=== PATIENT | female | born 1930 | race Hispanic/Latino ===

== ENCOUNTER 2016-10-21 08:52 | Day surgery (SDC) | payer MEDICARE ==
[2016-10-21] MEDS ORDERED: NACL 0.9% 500 ML 500 ML ONE (09:24)
[2016-10-21] MEDS ORDERED: DIPRIVAN 10 MG/ML IV ONE ×2 (09:29)
[2016-10-21] MEDS ORDERED: XYLOCAINE MPF 2% ONE (09:29)
[2016-10-21 09:40] LABS: Hematocrit 41.5 % (30.3-42.9); Hemoglobin 13.8 gm/dl (10.1-14.3); Mean Corpuscular HGB Conc 33 % (30-34); Mean Corpuscular Hemoglobin 31 pg (28-32); Mean Corpuscular Volume 93 fl (79-97); Platelet Count 235 K/mm3 (140-440); Red Blood Count 4.49 M/mm3 (3.65-5.03); Red Cell Distribution Width 14.4 % (13.2-15.2); White Blood Count 8.5 K/mm3 (4.5-11.0)
--- NOTE | 2016-10-21 09:40 | Anesthesia Consultation ---
Anesthesia Consult and Med Hx Date of service: 10/21/16 - Airway Anesthetic Teeth Evaluation: Good, Partials (bottom) ROM Head & Neck: Adequate Mallampati Class: Class II Intubation Access Assessment: Probably Good - Pre-Operative Health Status ASA Pre-Surgery Classification: ASA3 Proposed Anesthetic Plan: MAC - Cardiovascular System Hx Hypertension: Yes Hx Coronary Artery Disease: No (high cholestrol) Hx Cardia Arrhythmia: Yes (atrial fibrilation) - Central Nervous System Hx Seizures: No Hx Back Pain: No (gout) Hx Psychiatric Problems: Yes (hallucinations) - Endocrine Hx Insulin Dependent Diabetes: Yes
--- NOTE | 2016-10-21 09:41 | Anesthesia Day of Surgery ---
Anesthesia Day of Surgery - Day of Surgery Patient Examined: Yes Patient H&P Reviewed: Yes Patient is NPO: Yes Beta Blockers: Yes (took it last AM, to take after procedure)
[2016-10-21 09:51] LABS: INR 0.93 (0.87-1.13); Partial Thromboplastin Time 26.4 Sec. (24.2-36.6)
[2016-10-21 09:54] LABS: BUN/Creatinine Ratio 14.61; Calcium 9.1 mg/dL (8.4-10.2); Chloride 99.6 mmol/L (98-107); Potassium 4.1 mmol/L (3.6-5.0)
[2016-10-21] MEDS ORDERED: NACL 0.9% 500 ML 500 ML IV SCH (10:00)
[2016-10-21] MEDS ORDERED: HURRICAINE ONE 20% TOPICAL SPRAY MM NR (10:00)
--- NOTE | 2016-10-21 11:33 | Post Anesthesia Evaluation ---
- Post Anesthesia Evaluation Patient Participated: Yes Airway Patent: Yes Stable Respiratory Function: Yes Temp > 96.8F: Yes Pain Manageable: Yes Adequeate Hydration: Yes Anesthesia Complications: No Block Receding Appropriately: Not Applicable
--- NOTE | 2016-10-21 11:34 | Short Stay Summary ---
Short Stay Documentation Date of service: 10/21/16 - History H&P: obtained from office - Allergies and Medications Current Medications: Allergies No Known Allergies Allergy (Verified 01/08/14 22:47) Home Medications Medication Instructions Recorded Confirmed Last Taken Type B12/Levomefolate Calcium/B-6 1 each PO DAILY 01/08/14 01/08/14 10/20/16 History [Folbic Rf Tablet] 1 tab Metoprolol [Lopressor TAB] 25 mg PO BID 01/08/14 10/21/16 10/20/16 History Pioglitazone [Actos] 30 mg PO QDAY 01/08/14 10/21/16 10/20/16 History 30mg amLODIPine [Norvasc] 10 mg PO DAILY 01/08/14 10/21/16 10/20/16 History 10mg glipiZIDE [glipiZIDE XL] 10 mg PO DAILY 01/08/14 10/21/16 10/20/16 History 10mg Digoxin [Lanoxin] 0.125 mg PO DAILY@1700 #30 tablet 01/11/14 10/21/16 10/20/16 Rx 125mcg Allopurinol [Zyloprim] 100 mg PO QDAY #30 tablet 01/14/14 10/21/16 10/20/16 Rx 100mg Clopidogrel Bisulfate [Plavix] 75 mg PO DAILY 10/21/16 10/21/16 10/20/16 History 75mg Haloperidol [Haldol] 0.5 mg PO DAILY 10/21/16 10/21/16 10/20/16 History 0.5mg Insulin NPH, Human [NovoLIN N] 20 units SQ DAILY 10/21/16 10/21/16 10/20/16 History 20 units Pravastatin Sodium [Pravastatin 40 mg PO HS 10/21/16 10/21/16 10/20/16 History Sodium] lamoTRIgine [lamoTRIgine ER] 25 mg PO QAM 10/21/16 10/21/16 10/20/16 History 25mg Active Medications Benzocaine (Hurricaine One 20% Topical [place]) 3 spray MM PREOP NR Stop: 10/21/16 23:59 Last Admin: 10/21/16 10:50 Dose: 3 spray Sodium Chloride (Nacl 0.9% 500 Ml) 500 mls @ 50 mls/hr IV DIRECT ANDRES Stop: 10/21/16 23:59 Last Admin: 10/21/16 09:33 Dose: 50 mls/hr - Brief post op/procedure progress note Date of procedure: 10/21/16 Pre-op diagnosis: tia Post-op diagnosis: same Procedure: see report Anesthesia: local Estimated blood loss: none Pathology: none - Disposition Condition at discharge: Good Disposition: DISCHARGED TO HOME OR SELFCARE - Discharge Diagnoses (1) TIA (transient ischemic attack) Status: Chronic Qualifiers: Transient cerebral ischemia type: unspecified Qualified Code(s): G45.9 - Transient cerebral ischemic attack, unspecified (2) Hyperlipemia, mixed Status: Chronic (3) Hallucinations Status: Chronic (4) Diabetes Status: Chronic Qualifiers: Diabetes mellitus type: type 2 Diabetes mellitus complication status: without complication Diabetes mellitus complication detail: D Diabetic retinopathy severity: D Proliferative retinopathy type: P Diabetes mellitus macular edema: D Diabetes mellitus [facility] insulin use: with [facility] use Laterality: L Chronic kidney disease stage: C Qualified Code(s): E11.9 - Type 2 diabetes mellitus without complications; Z79.4 - correction (current) use of insulin Short Stay Discharge Plan Activity: advance as tolerated Diet: low fat, low cholesterol, diabetic Wound: keep clean and dry Follow up with: PENELOPE MISTRY MD [Primary Care Provider] - 7 Days
[2016-10-21 13:12] VITALS: BP 131/59
--- NOTE | 2016-10-21 17:27 | Echocardiography Report ---
PROCEDURE: LIVIER. PATIENT OF: Dr. Chema Nixon in [place]. REASON FOR INDICATION: Rule out cardiac source of emboli for multiple TIAs. LIVIER risks and benefits were explained to the patient and the patient's son. ANESTHESIA: As per anesthesiologist. DESCRIPTION OF PROCEDURE: LIVIER probe was successfully passed and the following findings: 1. Normal LV size and function. Normal left atrial size. Left atrial appendage normal no clot, normal pulse wave Doppler noted on left atrial appendage. 2. Right and left pulmonary veins were not visualized. Normal pulse wave Doppler noted. Interatrial septum was intact with negative bubble study and color Doppler. No PFO or ASD noted. 3. Aortic valve is trileaflet and mildly thickened, no aortic root regurgitation. Mitral valve is mildly thickened, no vegetation, mild mitral regurgitation. Tricuspid valve no vegetation, structurally intact. Pulmonary valve, structurally intact. 4. RV size and function normal. 5. Aorta ascending at the arch grade 2 plaque . At left subclavian, there is grade 4 plaque noted, a 0.44 cm and a 0.34 cm. So, grade 4 desending aortic plaque. LIVIER probe was successfully removed, no complications. SUMMARY: 1. 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 2. No PFO or ASD. No cardiac source of emboli noted with normal left atrial appendage, no clot. No vegetation noted. No significant regurgitation noted. JOB# [id number] GERARDO/TESSA SHIN
== END 2016-10-21 13:30 | disposition home or self-care (01) ==
LOC: OPU 08:52
PROVIDERS: ATTEND Internal Medicine
DX: I48.91 Unspecified atrial fibrillation (principal); I34.0 Nonrheumatic mitral (valve) insufficiency; I70.0 Atherosclerosis of aorta; E78.2 Mixed hyperlipidemia; E11.9 Type 2 diabetes mellitus without complications; I10 Essential (primary) hypertension; Z87.891 Personal history of nicotine dependence; Z86.73 Personal history of transient ischemic attack (TIA), and cerebral infarction without residual deficits
CPT/HCPCS: 36415; 80048; 82962; 85027; 85610; 85730; 93312; 93320; 93325; J2704; J7040